=== PATIENT | female | born 1935 | race Caucasian/White ===

== ENCOUNTER → 2017-01-29 | Outpatient (REF) | payer MEDICARE, OTHER | LOC: M LAB REF 18:36 | PROVIDERS: ATTEND Physician Assistant | DX: R30.0 Dysuria (principal) ==

== ENCOUNTER 2018-05-18 12:44 | Day surgery (SDC) | payer MEDICARE, OTHER ==
[~2018-05-18] VITALS: Ht 157.5 cm; Wt 75.7 kg
[~2018-05-18 12:44] MED LIST: ASPI1TAB PO; MULT1TAB10 PO; NS 1,000 ML IV ONE; OCUVTAB PO; OSTETAB2 PO; PRAV20TA2 PO; RANI150T PO; TRAZ-160 PO; VITA100067 PO
[2018-05-18] MEDS ORDERED: PROPOFOL 200 MG/20 ML VIAL As Ordered ONE (12:47)
[2018-05-18] MEDS ORDERED: LIDOCAINE 2% INJ 100 MG/5 ML SDV (FOR ANES.) As Ordered ONE (12:47)
--- NOTE | 2018-05-18 13:53 | ROOR ---
Patient Name: Jessica Aleman Procedure Date: 05/18/2018 1:31 PM Date of : 1935 Age: 83 Room: [facility] Gender: Female Note Status: Finalized Procedure: Upper GI endoscopy Indications: Heartburn, Regurgitation Providers: Erwin LEMONS MD Referring MD: eVnita REAVES MD Requesting Provider: Medicines: Monitored Anesthesia Care Complications: No immediate complications. Procedure: Pre-Anesthesia Assessment: - The heart rate, respiratory rate, oxygen saturations, blood pressure, adequacy of pulmonary ventilation, and response to care were monitored throughout the procedure. The Endoscope was introduced through the mouth, and advanced to the second part of duodenum. The upper GI endoscopy was accomplished without difficulty. The patient tolerated the procedure well. Findings: Edna-colored mucosa was present. No other visible abnormalities were present. Biopsies were taken with a cold forceps for histology. The examined esophagus was normal. A large hiatal hernia was present. Scattered mild inflammation characterized by erythema at the waist of the hernia was found in the stomach. Biopsies were taken with a cold forceps for histology. The examined duodenum was normal. Impression: - Edna-colored mucosa/ectopic mucosa in proximal esophagus (large inlet patch). Biopsied. - Otherwise Normal esophagus. - Large hiatal hernia with a few small shallow linear camerons erosions at the waist of the hernia. Biopsied. - Otherwise normal stomach. - Normal examined duodenum. Recommendation: - Continue present medications. - Finding of camerons erosions is minimal at present, however if pt has iron deficit, then would advance meds back to Omeprazole. Erwin Lemons MD Erwin LEMONS MD 05/18/2018 1:53:32 PM This report has been signed electronically. Number of Addenda: 0 Note Initiated On: 05/18/2018 1:31 PM Estimated Blood Loss: Estimated blood loss: none.
[2018-05-18 14:24] VITALS: BP 169/75
== END 2018-05-18 14:26 | disposition home or self-care (01) ==
LOC: M OPP 12:44
PROVIDERS: ATTEND Internal Medicine Gastroenterology
DX: R12 Heartburn (principal); R11.10 Vomiting, unspecified; K44.9 Diaphragmatic hernia without obstruction or gangrene; I10 Essential (primary) hypertension; Z79.82 Long term (current) use of aspirin; Z79.899 Other long term (current) drug therapy; Z80.0 Family history of malignant neoplasm of digestive organs; Z82.49 Family history of ischemic heart disease and other diseases of the circulatory system

== ENCOUNTER → 2018-06-26 | Outpatient (REF) | payer MEDICARE, OTHER ==
[~2018-06-26] MED LIST changes: -NS 1,000 ML IV ONE
== END ==
LOC: M LAB REF 16:49
PROVIDERS: ATTEND Internal Medicine
DX: N39.0 Urinary tract infection, site not specified (principal)

== ENCOUNTER → 2019-11-27 | Outpatient (REF) | payer MEDICARE, OTHER ==
[~2019-11-27] MED LIST changes: -ASPI1TAB PO; +ASPI81TA26 PO; +DILT120C89 PO; +OMEP-221 PO; -TRAZ-160 PO; +TRAZ-252 PO
== END ==
LOC: M LAB REF 15:12
PROVIDERS: ATTEND Internal Medicine
DX: R20.2 Paresthesia of skin (principal)

== ENCOUNTER → 2020-02-16 | Outpatient (CLI) | payer MEDICARE, OTHER | LOC: M LABSMTC 11:20 | PROVIDERS: ATTEND Orthopaedic Surgery | DX: Z01.812 Encounter for preprocedural laboratory examination (principal); Z20.828 Contact with and (suspected) exposure to other viral communicable diseases ==

== ENCOUNTER → 2020-02-21 | Outpatient (REF) | payer MEDICARE, OTHER ==
[~2020-02-21] MED LIST changes: -DILT120C89 PO; -OMEP-221 PO
== END ==
LOC: M LAB REF 17:18
PROVIDERS: ATTEND Orthopaedic Surgery
DX: D36.12 Benign neoplasm of peripheral nerves and autonomic nervous system, upper limb, including shoulder (principal)

== ENCOUNTER 2020-03-01 14:24 | Emergency (ER) | payer MEDICARE, OTHER ==
[~2020-03-01] VITALS: Ht 157.5 cm; Wt 72.7 kg
[2020-03-01] MEDS: NITROGLYCERIN 0.4 MG SUBL TABLET SL PRN ×2 (14:59→15:14)
[2020-03-01] MEDS ORDERED: TENECTEPLASE 50 MG KIT (TNKase) (J3101 PER 1MG) As Ordered ONE (15:00)
[2020-03-01] MEDS ORDERED: ASPIRIN 81 MG CHEW TABLET PO ONE (15:00)
[2020-03-01] MEDS ORDERED: HEPARIN 25,000 UNITS/250 ML D5W BAG (100 UNITS/ML) (J1644 PER 1000UNITS) As Ordered ONE (15:04)
[2020-03-01 15:05] LABS: BASO # 0.1 10^3/uL (0.0-0.2); BASO % 0.5 % (0.0-1.0); EOS # 0.1 10^3/uL (0.0-0.5); HEMATOCRIT 42.2 % (36.0-47.0); HEMOGLOBIN 14.2 g/dl (12.0-15.5); LYMPH % 32.8 % (24.0-44.0); MEAN CORPUSCULAR HEMOGLOBIN 31.4 pg (27.0-33.0); MEAN CORPUSCULAR HGB CONC 33.6 g/dl (32.0-36.5); MEAN CORPUSCULAR VOLUME 93.4 fl (80.0-96.0); MONO # 0.7 10^3/uL (0.0-0.8); MONO % 7.6 % (0.0-5.0); NEUTROPHILS # 5.3 10^3/uL (1.5-8.5); NEUTROPHILS % 57.7 % (36.0-66.0); PLATELET COUNT, AUTOMATED 260 10^3/uL (150-450); RED BLOOD COUNT 4.52 10^6/uL (4.00-5.40); WHITE BLOOD COUNT 9.2 10^3/uL (4.0-10.0)
[2020-03-01] MEDS ORDERED: CLOPIDOGREL 300 MG TAB (PLAVIX) PO ONE (15:15)
[2020-03-01] MEDS ORDERED: HEPARIN SOD (PORCINE) 5000UNITS/ML 1ML VIAL/SYRINGE IV ONE (15:15)
[2020-03-01] MEDS ORDERED: HEPARIN DRIP 25,000 UNITS in IV 1 EA IV SCH (15:15)
[2020-03-01 15:16] LABS: INR 1.07; PROTHROMBIN TIME 14.1 SECONDS (12.5-14.3)
[2020-03-01 15:17] LABS: PARTIAL THROMBOPLASTIN TIME 26.6 SECONDS (24.2-38.5)
[2020-03-01 15:21] LABS: D-DIMER QUANT 1255.6 ng/ml (<500)
[2020-03-01] MEDS ORDERED: OMEP-221 PO (15:24)
[2020-03-01] MEDS ORDERED: DILT120C89 PO (15:24)
--- NOTE | 2020-03-01 15:26 | REP ---
INDICATION: CHEST PAIN. COMPARISON: None. TECHNIQUE: AP portable upright FINDINGS: The lung watson are well inflated. Some basilar fibrotic change and scattered interstitial changes throughout the lungs. Some patchy increased density the right medial base and some perihilar pulmonary venous hypertension without mika edema. No definite effusion, lateral pleural thickening or apical scarring. There is no cardiomegaly. Aorta is calcified at the arch but without aneurysm. Airway intact. No widening of the mediastinum. Bones with some degenerative changes and demineralization. No free air. IMPRESSION: Underlying fibrosis and COPD. Patchy right medial base infrahilar atelectasis or early infiltrate. No gross effusion. No cardiomegaly but some pulmonary venous hypertension seen without definite edema. <Electronically signed by Jordan Delgado > 03/01/20 [id number]
[2020-03-01] MEDS ORDERED: NITROGLYCERIN 2% OINT 1 GM *U/D* PKT TOP ONE ×2 (15:30→16:15)
[2020-03-01 15:39] LABS: ALBUMIN 4.1 GM/DL (3.2-5.2); ALT/SGPT 25 U/L (12-78); BILIRUBIN,DIRECT < 0.1 MG/DL (0.0-0.2); BILIRUBIN,TOTAL 0.6 MG/DL (0.2-1.0); LIPASE 129 U/L (73-393); NT-PRO BNP 127 PG/ML (<450); TOTAL PROTEIN 7.1 GM/DL (6.4-8.2)
[2020-03-01 16:11] VITALS: BP 193/103
[2020-03-01] MEDS ORDERED: MORPHINE 2 MG/ML 1ML VIAL (J2270) IV ONE (16:15)
[2020-03-01] MEDS ORDERED: METOPROLOL TART 25 MG TABLET PO ONE (16:15)
[2020-03-01 16:55] VITALS: BP 175/110
--- NOTE | 2020-03-01 17:08 | ECGEPIP ---
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
--- NOTE | 2020-03-01 17:08 | ECGEPIP ---
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
== END 2020-03-01 16:59 | disposition short-term general hospital (02) ==
LOC: M ED 14:24
DX: I20.0 Unstable angina (principal); R06.02 Shortness of breath; I10 Essential (primary) hypertension; E78.5 Hyperlipidemia, unspecified; K21.9 Gastro-esophageal reflux disease without esophagitis; Z79.899 Other long term (current) drug therapy
CPT/HCPCS: 71045; 80047; 80076; 83690; 83880; 84443; 84484; 85025; 85379; 85610; 85730; 93005; 93041; 94760; 96365; 96366; 96375; 99291; J1644; J2270; U0002

== ENCOUNTER → 2020-03-13 | Outpatient (REF) | payer MEDICARE, OTHER ==
[~2020-03-13] MED LIST changes: +ASPI1CHW2 PO; +ATOR80TA59 PO; +BRIL90TA PO; +DIGO0.123 PO; +DILT120C89 PO; +ELIQ5TAB PO; +FURO40TA2 PO; +LISI-542 PO; +METO100T5 PO; +NITR0.4S14 SL; +OMEP-221 PO; +POTA20TA6 PO; +PRES10CA2 PO
== END ==
LOC: M LAB REF 12:19
PROVIDERS: ATTEND Internal Medicine
DX: I48.20 Chronic atrial fibrillation, unspecified (principal)

== ENCOUNTER 2020-03-20 17:01 | Emergency (ER) | payer MEDICARE, OTHER ==
[~2020-03-20] VITALS: Ht 157.5 cm; Wt 70.5 kg
[~2020-03-20 17:01] MED LIST changes: -ASPI1CHW2 PO; -ATOR80TA59 PO; -BRIL90TA PO; -DIGO0.123 PO; -ELIQ5TAB PO; -FURO40TA2 PO; -LISI-542 PO; -METO100T5 PO; -NITR0.4S14 SL; -POTA20TA6 PO; -PRES10CA2 PO
[2020-03-20 17:24] VITALS: BP 127/62
[2020-03-20 17:26] LABS: BASO % 0.4 % (0.0-1.0); EOS # 0.1 10^3/uL (0.0-0.5); EOS % 1.3 % (0.0-3.0); HEMATOCRIT 34.4 % (36.0-47.0); HEMOGLOBIN 11.8 g/dl (12.0-15.5); LYMPH # 1.3 10^3/uL (1.5-5.0); LYMPH % 18.7 % (24.0-44.0); MEAN CORPUSCULAR HEMOGLOBIN 31.3 pg (27.0-33.0); MEAN CORPUSCULAR HGB CONC 34.3 g/dl (32.0-36.5); MEAN CORPUSCULAR VOLUME 91.2 fl (80.0-96.0); MONO # 0.9 10^3/uL (0.0-0.8); MONO % 13.2 % (0.0-5.0); NEUTROPHILS # 4.5 10^3/uL (1.5-8.5); NEUTROPHILS % 66.3 % (36.0-66.0); PLATELET COUNT, AUTOMATED 176 10^3/uL (150-450); RED BLOOD COUNT 3.77 10^6/uL (4.00-5.40); WHITE BLOOD COUNT 6.8 10^3/uL (4.0-10.0)
[2020-03-20] MEDS ORDERED: METOPROLOL TARTRATE 100 MG TAB PO ONE (17:30)
--- NOTE | 2020-03-20 17:46 | REP ---
INDICATION: CHEST PAIN COMPARISON: 03/01/2020 TECHNIQUE: Portable AP view of the chest FINDINGS: The mediastinum and cardiac silhouette are stable and within normal limits for portable technique. The lung watson are clear without acute consolidation, effusion, or pneumothorax. Skeletal structures are intact. IMPRESSION: No acute cardiopulmonary process appreciated. <Electronically signed by Arjun Lewis > 03/20/20 [id number]
[2020-03-20 18:02] LABS: ALBUMIN 3.4 GM/DL (3.2-5.2); BILIRUBIN,DIRECT 0.2 MG/DL (0.0-0.2); BILIRUBIN,TOTAL 0.6 MG/DL (0.2-1.0); CREATININE FOR GFR 1.29 MG/DL (0.55-1.30); GLOMERULAR FILTRATION RATE 42.1 (>32); POTASSIUM SERUM 3.5 MEQ/L (3.5-5.1); THYROID STIMULATING HORMONE 0.991 uIU/ML (0.358-3.740); TOTAL PROTEIN 5.8 GM/DL (6.4-8.2)
[2020-03-20] MEDS ORDERED: DIGO0.123 PO (18:07)
[2020-03-20] MEDS ORDERED: ASPI1CHW2 PO (18:07)
[2020-03-20] MEDS ORDERED: BRIL90TA PO (18:07)
[2020-03-20] MEDS ORDERED: ELIQ5TAB PO (18:07)
[2020-03-20] MEDS ORDERED: METO100T5 PO (18:07)
[2020-03-20] MEDS ORDERED: FURO40TA2 PO (18:07)
[2020-03-20] MEDS ORDERED: PRES10CA2 PO (18:07)
[2020-03-20] MEDS ORDERED: LISI-542 PO (18:07)
[2020-03-20] MEDS ORDERED: NITR0.4S14 SL (18:07)
[2020-03-20] MEDS ORDERED: POTA20TA6 PO (18:07)
[2020-03-20] MEDS ORDERED: ATOR80TA59 PO (18:07)
--- NOTE | 2020-03-20 18:14 | ECGEPIP ---
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
[2020-03-20 18:24] LABS: CK-MB VALUE MASS 2.4 NG/ML (<3.6); MB/CK RELATIVE INDEX 2.58 (< OR =4); TROPONIN I 0.06 NG/ML (< 0.10)
[2020-03-20 20:58] LABS: CK-MB VALUE MASS 3.2 NG/ML (<3.6); MB/CK RELATIVE INDEX 3.56 (< OR =4); TROPONIN I 0.09 NG/ML (< 0.10)
[2020-03-20 23:54] LABS: CK-MB VALUE MASS 2.8 NG/ML (<3.6); MB/CK RELATIVE INDEX 2.98 (< OR =4); TROPONIN I 0.08 NG/ML (< 0.10)
[2020-03-21 00:30] VITALS: BP 114/65
--- NOTE | 2020-03-21 06:36 | ECGEPIP ---
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
== END 2020-03-21 00:41 | disposition home or self-care (01) ==
LOC: EDBD 17:01 → M ED 17:01
DX: R07.89 Other chest pain (principal); I95.2 Hypotension due to drugs; I48.91 Unspecified atrial fibrillation; I10 Essential (primary) hypertension; E78.5 Hyperlipidemia, unspecified; K21.9 Gastro-esophageal reflux disease without esophagitis; Z79.01 Long term (current) use of anticoagulants; Z79.02 Long term (current) use of antithrombotics/antiplatelets; Z79.899 Other long term (current) drug therapy; Z79.82 Long term (current) use of aspirin; Z95.5 Presence of coronary angioplasty implant and graft; Z82.49 Family history of ischemic heart disease and other diseases of the circulatory system

== ENCOUNTER → 2020-04-07 | Outpatient (REF) | payer MEDICARE, OTHER ==
[~2020-04-07] MED LIST changes: +ASPI1CHW2 PO; +ATOR80TA59 PO; +BRIL90TA PO; +DIGO0.123 PO; +ELIQ5TAB PO; +FURO40TA2 PO; +LISI-542 PO; +METO100T5 PO; +NITR0.4S14 SL; +POTA20TA6 PO; +PRES10CA2 PO
[2020-04-07 16:58] LABS: BASO % 0.6 % (0.0-1.0); EOS # 0.1 10^3/uL (0.0-0.5); EOS % 2.4 % (0.0-3.0); HEMATOCRIT 36.4 % (36.0-47.0); HEMOGLOBIN 12.1 g/dl (12.0-15.5); LYMPH # 1.7 10^3/uL (1.5-5.0); LYMPH % 33.9 % (24.0-44.0); MEAN CORPUSCULAR HEMOGLOBIN 32.4 pg (27.0-33.0); MEAN CORPUSCULAR HGB CONC 33.2 g/dl (32.0-36.5); MEAN CORPUSCULAR VOLUME 97.3 fl (80.0-96.0); MONO # 0.4 10^3/uL (0.0-0.8); MONO % 8.4 % (0.0-5.0); NEUTROPHILS # 2.7 10^3/uL (1.5-8.5); NEUTROPHILS % 54.3 % (36.0-66.0); PLATELET COUNT, AUTOMATED 206 10^3/uL (150-450); RED BLOOD COUNT 3.74 10^6/uL (4.00-5.40)
[2020-04-07 17:17] LABS: CALCIUM LEVEL 9.8 MG/DL (8.8-10.2); CREATININE FOR GFR 0.98 MG/DL (0.55-1.30); GLOMERULAR FILTRATION RATE 57.7 (>32); MAGNESIUM LEVEL 2.1 MG/DL (1.8-2.4); POTASSIUM SERUM 4.5 MEQ/L (3.5-5.1)
[2020-04-08 14:40] LABS: DIGOXIN LEVEL 0.5 NG/ML (0.5-2.0)
== END ==
LOC: M LAB REF 16:26
PROVIDERS: ATTEND Internal Medicine
DX: I50.20 Unspecified systolic (congestive) heart failure (principal)

== ENCOUNTER → 2020-07-22 | Outpatient (REF) | payer MEDICARE, OTHER ==
[~2020-07-22] MED LIST changes: -LISI-542 PO; +LISI-898 PO
== END ==
LOC: M LAB REF 16:20
PROVIDERS: ATTEND Internal Medicine
DX: I48.20 Chronic atrial fibrillation, unspecified (principal)

== ENCOUNTER → 2021-01-27 | Outpatient (REF) | payer MEDICARE, OTHER | LOC: M LAB REF 16:46 | PROVIDERS: ATTEND Internal Medicine | DX: I48.20 Chronic atrial fibrillation, unspecified (principal) ==

== ENCOUNTER → 2022-03-30 | Outpatient (CLI) | payer MEDICARE, OTHER ==
[~2022-03-30] MED LIST changes: -LISI-898 PO; +LISI5TAB11 PO; -OMEP-221 PO; +OMEP40CA5 PO; +POTA-151 PO; -POTA20TA6 PO
== END ==
LOC: M WUC 14:49
PROVIDERS: ATTEND Internal Medicine
DX: M54.2 Cervicalgia (principal)

== ENCOUNTER → 2022-04-02 | Outpatient (CLI) | payer MEDICARE, OTHER | LOC: M PLAIMG 09:58 | PROVIDERS: ATTEND Internal Medicine | DX: R51.9 Headache, unspecified (principal) ==

== ENCOUNTER → 2022-11-02 | Outpatient (REF) | payer MEDICARE, OTHER | LOC: M LAB REF 17:19 | PROVIDERS: ATTEND Internal Medicine | DX: I48.20 Chronic atrial fibrillation, unspecified (principal) ==

== ENCOUNTER → 2023-02-01 | Outpatient (REF) | payer MEDICARE, OTHER | LOC: M LAB REF 17:53 | PROVIDERS: ATTEND Internal Medicine | DX: I48.20 Chronic atrial fibrillation, unspecified (principal) ==

== ENCOUNTER → 2023-06-13 | Outpatient (REF) | payer MEDICARE, OTHER | LOC: M LAB REF 16:24 | PROVIDERS: ATTEND Internal Medicine | DX: I48.20 Chronic atrial fibrillation, unspecified (principal) ==

== ENCOUNTER → 2024-02-14 | Outpatient (REF) | payer MEDICARE, OTHER | LOC: M LAB REF 17:32 | PROVIDERS: ATTEND Internal Medicine | DX: I48.0 Paroxysmal atrial fibrillation (principal) ==

== ENCOUNTER → 2024-05-04 | Outpatient (REF) | payer MEDICARE, OTHER | LOC: M LAB REF 16:03 | PROVIDERS: ATTEND Physician Assistant Medical | DX: R05.9 Cough, unspecified (principal) ==

== ENCOUNTER → 2024-05-08 | Outpatient (CLI) | payer MEDICARE, OTHER ==
[~2024-05-08] MED LIST changes: +VITA100093 PO
== END ==
LOC: M WUC 14:54
PROVIDERS: ATTEND Physician Assistant Medical
DX: R07.82 Intercostal pain (principal)

== ENCOUNTER → 2024-05-09 | Outpatient (REF) | payer MEDICARE, OTHER | LOC: M LAB REF 12:21 | PROVIDERS: ATTEND Internal Medicine | DX: R06.02 Shortness of breath (principal); N18.30 Chronic kidney disease, stage 3 unspecified ==

== ENCOUNTER 2024-05-11 11:18 | Inpatient (IN) | payer MEDICARE, OTHER ==
[2024-05-11] VITALS (21 sets, daily range): BP systolic 102–198; BP diastolic 54–77; TEMP 98.1–99.1; O2SAT 95–100
[~2024-05-11] VITALS: Ht 157.5 cm; Wt 64.9 kg
[~2024-05-11 11:18] MED LIST changes: -VITA100093 PO
[2024-05-11 12:58] LABS: BASO % 0.3 % (0.0-1.0); EOS # 0.1 10^3/uL (0.0-0.5); EOS % 0.5 % (0.0-3.0); HEMATOCRIT 36.4 % (36.0-47.0); HEMOGLOBIN 12.2 g/dl (12.0-15.5); LYMPH # 1.1 10^3/uL (1.5-5.0); LYMPH % 9.2 % (24.0-44.0); MEAN CORPUSCULAR HEMOGLOBIN 32.4 pg (27.0-33.0); MEAN CORPUSCULAR HGB CONC 33.5 g/dl (32.0-36.5); MEAN CORPUSCULAR VOLUME 96.6 fl (80.0-96.0); MONO % 8.4 % (2.0-8.0); NEUTROPHILS # 9.8 10^3/uL (1.5-8.5); PLATELET COUNT, AUTOMATED 513 10^3/uL (150-450); RED BLOOD COUNT 3.77 10^6/uL (4.00-5.40); WHITE BLOOD COUNT 12.1 10^3/uL (4.0-10.0)
[2024-05-11 13:21] LABS: LIPASE 59 U/L (12-53)
[2024-05-11 13:23] LABS: ALKALINE PHOSPHATASE 128 U/L (35-104); ALT/SGPT 38 U/L (7.0-40); AST/SGOT 47 U/L (<34); BILIRUBIN,DIRECT 0.3 MG/DL (<0.4); BILIRUBIN,TOTAL 0.6 MG/DL (0.3-1.2); BLOOD UREA NITROGEN 26 MG/DL (9-23); CALCIUM LEVEL 10.2 MG/DL (8.3-10.6); CARBON DIOXIDE LEVEL 26 MMOL/L (20-31); CHLORIDE LEVEL 108 MMOL/L (98-107); CREATININE FOR GFR 0.85 MG/DL (0.55-1.30); GLOMERULAR FILTRATION RATE > 60.0 (>32); GLUCOSE, FASTING 109 MG/DL (74-106); POTASSIUM SERUM 4.9 MMOL/L (3.5-5.1); SODIUM LEVEL 142 MMOL/L (136-145); TOTAL PROTEIN 5.6 G/DL (5.7-8.2)
[2024-05-11 15:32] LABS: KETONE, URINE AUTO RFX NEGATIVE (NEGATIVE); MUCUS, URINE RFX SMALL (NEGATIVE); NITRITE, URINE AUTO RFX NEGATIVE (NEGATIVE); RBC, URINE AUTO RFX 1 /HPF (0-3); SQUAM EPITHELIAL CELL UR AURFX 1 /HPF (0-6); WBC, URINE AUTO RFX 2 /HPF (0-3)
[2024-05-11 15:33] LABS: LEUKOCYTE ESTERASE UR AUTO RFX TRACE (NEGATIVE)
[2024-05-11] MEDS: IPRATROPIUM 0.5MG/ALBUTEROL 2.5MG INH SOL UD 3ML (DUONEB) NEB ONE (16:05)
[2024-05-11] MEDS ORDERED: D5W/0.9% SODIUM CHLORIDE 1,000 ML IV SCH (17:10)
[2024-05-11] MEDS ORDERED: LEVALBUTEROL 1.25MG 0.5ML CONCENTRATE NEB NEB PRN (17:10)
[2024-05-11] MEDS ORDERED: BISACODYL 10MG SUPP PR PRN (17:10)
[2024-05-11] MEDS ORDERED: ONDANSETRON 4MG 2ML VIAL IV PRN (17:10)
[2024-05-11] MEDS ORDERED: MAALOX 30 ML SUSP *UDC PO PRN (17:20)
[2024-05-11] MEDS ORDERED: guaiFENesin DM *SUGAR FREE* 5ML**DIABETIC TUSSIN DM PO PRN (17:30)
[2024-05-11 17:37] LABS: LDH LACTATE DEHYDROGENASE 289 U/L (120-246)
[2024-05-11 17:43] LABS: ABG BASE EXCESS 0.9 (-2.0-2.0); ABG HCO3 24.1 MMOL/L (22.0-26.0); ABG O2 SATURATION 93.9 % (95.0-99.0); ABG PARTIAL PRESSURE CO2 33.9 mmHg (35.0-45.0); ABG PARTIAL PRESSURE O2 66.5 mmHg (75.0-100.0); ABG STANDARD HCO3 25.2 MMOL/L. (22.0-26.0); ABG TOTAL CO2 25.2 MMOL/L (23.0-31.0)
[2024-05-11] MEDS: MIDAZOLAM INJ 2MG/2ML VIAL IV STA (17:57)
[2024-05-11] MEDS: LIDOCAINE 1% MDV 20ML VIAL SC STA (17:57)
[2024-05-11] MEDS: flumazeniL 0.5MG/5ML VIAL IV STA (17:57)
[2024-05-11] MEDS ORDERED: VITA100093 PO (18:14)
[2024-05-11] MEDS ORDERED: HOME MED LIST COMPLETE! XX SCH (18:15)
[2024-05-11 19:59] LABS: IONIZED CALCIUM 5.1 MG/DL (4.5-5.3)
[2024-05-11] MEDS: LEVALBUTEROL 1.25MG 0.5ML CONCENTRATE NEB NEB SCH (20:10)
[2024-05-11] MEDS: KETOROLAC 30 MG/ML 1ML VIAL IV SCH (20:23)
[2024-05-11] MEDS: PIPERACILLIN/TAZOBACTAM SOD 4.5 GM in DEXTROSE 5% (D5W) ADV/MINI-BAG 50 ML IV SCH (20:24)
[2024-05-11 20:34] LABS: APPEARANCE, BODY FLUID HAZY (CLEAR); PLEURAL FL COLOR ORANGE (COLORLESS); SOURCE, BODY FLUID PLEURAL
[2024-05-11] MEDS: DOCUSATE SODIUM 100MG CAPSULE PO SCH (20:54)
[2024-05-11 21:01] LABS: PH BODY FLUID 7.687 UNITS (NOT ESTABLISHED); SOURCE, BODY FLUID pH PLEURAL
[2024-05-11 21:05] LABS: SOURCE, BODY FLUID ALBUMIN PLEURAL
[2024-05-11 21:23] LABS: SOURCE, BODY FLUID TOT PROTEIN PLEURAL; TOTAL PROTEIN, BODY FLUID 3.2 G/DL (NOT ESTABLISHED)
[2024-05-11] MEDS: DOXYCYCLINE HYCLATE 100MG TABLET PO SCH (21:47)
[2024-05-12] VITALS (12 sets, daily range): BP systolic 108–142; BP diastolic 56–76; TEMP 97.1–98.6; O2SAT 92–97
[2024-05-12 04:55] LABS: BASO % 0.5 % (0.0-1.0); EOS # 0.1 10^3/uL (0.0-0.5); EOS % 1.7 % (0.0-3.0); HEMATOCRIT 32.9 % (36.0-47.0); LYMPH # 1.7 10^3/uL (1.5-5.0); LYMPH % 19.9 % (24.0-44.0); MEAN CORPUSCULAR HEMOGLOBIN 32.1 pg (27.0-33.0); MEAN CORPUSCULAR HGB CONC 33.4 g/dl (32.0-36.5); MEAN CORPUSCULAR VOLUME 95.9 fl (80.0-96.0); MONO % 11.7 % (2.0-8.0); NEUTROPHILS # 5.5 10^3/uL (1.5-8.5); NEUTROPHILS % 65.7 % (36.0-66.0); PLATELET COUNT, AUTOMATED 421 10^3/uL (150-450); RED BLOOD COUNT 3.43 10^6/uL (4.00-5.40); WHITE BLOOD COUNT 8.3 10^3/uL (4.0-10.0)
[2024-05-12 05:20] LABS: CALCIUM LEVEL 10.2 MG/DL (8.3-10.6); GLOMERULAR FILTRATION RATE 55.8 (>32); POTASSIUM SERUM 4.8 MMOL/L (3.5-5.1)
[2024-05-12] MEDS: MOM 30ML SUSPENSION UDC PO SCH (08:18)
[2024-05-12] MEDS: METOPROLOL TARTRATE 100MG TAB PO SCH (08:18)
[2024-05-12] MEDS: ACETAMINOPHEN 325 MG TAB PO PRN (08:18)
[2024-05-12] MEDS: PANTOPRAZOLE 40MG TAB (PROTONIX) PO SCH (08:19)
[2024-05-12] MEDS: DIGOXIN 0.125 MG TAB PO SCH (08:19)
[2024-05-12] MEDS: APIXABAN 5 MG TAB (ELIQUIS) PO SCH (08:19)
[2024-05-12] MEDS ORDERED: PANTOPRAZOLE 40MG VIAL IV SCH (09:00)
[2024-05-12 11:12] LABS: SOURCE, BODY FLUID GLUCOSE PLEURAL; SOURCE, BODY FLUID TRIG PLEURAL; TRIGLYCERIDE, BODY FLUID 28 MG/DL (NOT ESTABLISHED)
[2024-05-12 11:13] LABS: AMYLASE, BODY FLUID 38 U/L (NOT ESTABLISHED); LDH, BODY FLUID 320 U/L (NOT ESTABLISHED); SOURCE, BODY FLUID AMYLASE PLEURAL; SOURCE, BODY FLUID LDH PLEURAL
[2024-05-12 11:14] LABS: CHOLESTEROL, BODY FLUID 48 MG/DL (NOT ESTABLISHED); SOURCE, BODY FLUID CHOL PLEURAL
[2024-05-12] MEDS: traZODone 50 MG TAB PO SCH (20:26)
[2024-05-12] MEDS: ATORVASTATIN 20 MG TAB PO SCH (20:26)
[2024-05-12] MEDS: PERCOCET 5MG/325MG TAB PO PRN (21:21)
[2024-05-13] VITALS (21 sets, daily range): BP systolic 110–128; BP diastolic 59–68; TEMP 97.3–98.5; O2SAT 91–100
[2024-05-13] MEDS ORDERED: ISOVUE-370 76% 100ML VIAL As Ordered ONE (01:06)
[2024-05-13 05:49] LABS: BASO # 0.1 10^3/uL (0.0-0.2); BASO % 0.5 % (0.0-1.0); EOS # 0.3 10^3/uL (0.0-0.5); HEMATOCRIT 32.7 % (36.0-47.0); HEMOGLOBIN 10.6 g/dl (12.0-15.5); LYMPH # 1.6 10^3/uL (1.5-5.0); LYMPH % 16.8 % (24.0-44.0); MEAN CORPUSCULAR HEMOGLOBIN 31.6 pg (27.0-33.0); MEAN CORPUSCULAR HGB CONC 32.4 g/dl (32.0-36.5); MEAN CORPUSCULAR VOLUME 97.6 fl (80.0-96.0); MONO % 10.8 % (2.0-8.0); NEUTROPHILS # 6.4 10^3/uL (1.5-8.5); NEUTROPHILS % 68.5 % (36.0-66.0); PLATELET COUNT, AUTOMATED 456 10^3/uL (150-450); RED BLOOD COUNT 3.35 10^6/uL (4.00-5.40); WHITE BLOOD COUNT 9.3 10^3/uL (4.0-10.0)
[2024-05-13 06:04] LABS: CALCIUM LEVEL 9.5 MG/DL (8.3-10.6); CREATININE FOR GFR 1.07 MG/DL (0.55-1.30); GLOMERULAR FILTRATION RATE 51.6 (>32); POTASSIUM SERUM 5.5 MMOL/L (3.5-5.1)
[2024-05-13] MEDS: DEXTROSE 50% 50ML SYRINGE IV STA (07:50)
[2024-05-13] MEDS: HumuLIN R (REGULAR) INSULIN (NovoLIN R) **100U/ML** PER UNIT IV STA (07:51)
[2024-05-13] MEDS: ALBUTEROL SULFATE 2.5MG/0.5ML INH NEB SOLN NEB ONE (08:27)
[2024-05-13] MEDS: PERCOCET 5MG/325MG TAB PO PRN (08:46)
[2024-05-13 11:03] LABS: CALCIUM LEVEL 9.9 MG/DL (8.3-10.6); CREATININE FOR GFR 0.98 MG/DL (0.55-1.30); GLOMERULAR FILTRATION RATE 57.2 (>32); POTASSIUM SERUM 4.9 MMOL/L (3.5-5.1)
[2024-05-14] VITALS (22 sets, daily range): BP systolic 101–136; BP diastolic 53–72; TEMP 97.2–98.9; O2SAT 88–100
[2024-05-14 06:09] LABS: BASO # 0.1 10^3/uL (0.0-0.2); BASO % 0.6 % (0.0-1.0); EOS # 0.3 10^3/uL (0.0-0.5); EOS % 2.4 % (0.0-3.0); HEMATOCRIT 36.3 % (36.0-47.0); HEMOGLOBIN 11.7 g/dl (12.0-15.5); LYMPH # 1.2 10^3/uL (1.5-5.0); LYMPH % 10.7 % (24.0-44.0); MEAN CORPUSCULAR HEMOGLOBIN 31.6 pg (27.0-33.0); MEAN CORPUSCULAR HGB CONC 32.2 g/dl (32.0-36.5); MEAN CORPUSCULAR VOLUME 98.1 fl (80.0-96.0); MONO # 0.9 10^3/uL (0.0-0.8); NEUTROPHILS # 8.9 10^3/uL (1.5-8.5); NEUTROPHILS % 77.8 % (36.0-66.0); PLATELET COUNT, AUTOMATED 482 10^3/uL (150-450); WHITE BLOOD COUNT 11.5 10^3/uL (4.0-10.0)
[2024-05-14 06:36] LABS: BLOOD UREA NITROGEN 20 MG/DL (9-23); CALCIUM LEVEL 9.9 MG/DL (8.3-10.6); CARBON DIOXIDE LEVEL 25 MMOL/L (20-31); CHLORIDE LEVEL 108 MMOL/L (98-107); CREATININE FOR GFR 0.91 MG/DL (0.55-1.30); GLOMERULAR FILTRATION RATE > 60.0 (>32); GLUCOSE, FASTING 88 MG/DL (74-106); POTASSIUM SERUM 5.5 MMOL/L (3.5-5.1); SODIUM LEVEL 140 MMOL/L (136-145)
[2024-05-14] MEDS: HumuLIN R (REGULAR) INSULIN (NovoLIN R) **100U/ML** PER UNIT IV STA (07:03)
[2024-05-14] MEDS: FUROSEMIDE 40MG/4ML VIAL IV ONE (08:22)
[2024-05-14] MEDS: ALBUTEROL SULFATE 2.5MG/0.5ML INH NEB SOLN NEB ONE (08:36)
[2024-05-14] MEDS: SOD POLYSTYRENE SULFONATE SUSP 15GM 60ML UD PO ONE (08:36)
[2024-05-14] MEDS: BISACODYL 10MG SUPP PR SCH (09:00)
[2024-05-14] MEDS: SENOKOT S TAB PO SCH (09:16)
[2024-05-14 12:39] LABS: CALCIUM LEVEL 10.3 MG/DL (8.3-10.6); CREATININE FOR GFR 0.98 MG/DL (0.55-1.30); GLOMERULAR FILTRATION RATE 57.2 (>32); POTASSIUM SERUM 4.5 MMOL/L (3.5-5.1)
[2024-05-15] VITALS (28 sets, daily range): BP systolic 115–122; BP diastolic 56–69; TEMP 97.2–98.2; O2SAT 89–100
[2024-05-15 06:05] LABS: BASO # 0.1 10^3/uL (0.0-0.2); BASO % 0.8 % (0.0-1.0); EOS # 0.2 10^3/uL (0.0-0.5); HEMATOCRIT 34.2 % (36.0-47.0); HEMOGLOBIN 11.1 g/dl (12.0-15.5); LYMPH # 1.1 10^3/uL (1.5-5.0); LYMPH % 11.6 % (24.0-44.0); MEAN CORPUSCULAR HEMOGLOBIN 31.5 pg (27.0-33.0); MEAN CORPUSCULAR HGB CONC 32.5 g/dl (32.0-36.5); MEAN CORPUSCULAR VOLUME 97.2 fl (80.0-96.0); MONO # 1.2 10^3/uL (0.0-0.8); MONO % 12.7 % (2.0-8.0); NEUTROPHILS # 6.9 10^3/uL (1.5-8.5); NEUTROPHILS % 72.6 % (36.0-66.0); PLATELET COUNT, AUTOMATED 430 10^3/uL (150-450); RED BLOOD COUNT 3.52 10^6/uL (4.00-5.40); WHITE BLOOD COUNT 9.6 10^3/uL (4.0-10.0)
[2024-05-15 06:18] LABS: CALCIUM LEVEL 9.9 MG/DL (8.3-10.6); CREATININE FOR GFR 1.08 MG/DL (0.55-1.30); GLOMERULAR FILTRATION RATE 51.1 (>32); POTASSIUM SERUM 4.7 MMOL/L (3.5-5.1)
[2024-05-15] MEDS: SOD POLYSTYRENE SULFONATE SUSP 15GM 60ML UD PO ONE (09:01)
[2024-05-15] MEDS: CEFDINIR 300 MG CAP (OMNICEF) PO SCH (20:34)
[2024-05-16 03:31] VITALS: BP 119/68; TEMP 98.5; O2SAT 95
[2024-05-16 06:55] LABS: BASO # 0.1 10^3/uL (0.0-0.2); BASO % 0.8 % (0.0-1.0); EOS # 0.3 10^3/uL (0.0-0.5); HEMATOCRIT 33.5 % (36.0-47.0); HEMOGLOBIN 10.9 g/dl (12.0-15.5); LYMPH # 1.3 10^3/uL (1.5-5.0); LYMPH % 14.5 % (24.0-44.0); MEAN CORPUSCULAR HEMOGLOBIN 31.6 pg (27.0-33.0); MEAN CORPUSCULAR HGB CONC 32.5 g/dl (32.0-36.5); MEAN CORPUSCULAR VOLUME 97.1 fl (80.0-96.0); MONO # 1.2 10^3/uL (0.0-0.8); MONO % 13.6 % (2.0-8.0); NEUTROPHILS # 5.9 10^3/uL (1.5-8.5); NEUTROPHILS % 67.5 % (36.0-66.0); PLATELET COUNT, AUTOMATED 422 10^3/uL (150-450); RED BLOOD COUNT 3.45 10^6/uL (4.00-5.40); WHITE BLOOD COUNT 8.7 10^3/uL (4.0-10.0)
[2024-05-16 07:22] LABS: BLOOD UREA NITROGEN 18 MG/DL (9-23); CALCIUM LEVEL 9.4 MG/DL (8.3-10.6); CARBON DIOXIDE LEVEL 28 MMOL/L (20-31); CHLORIDE LEVEL 110 MMOL/L (98-107); CREATININE FOR GFR 0.86 MG/DL (0.55-1.30); GLOMERULAR FILTRATION RATE > 60.0 (>32); GLUCOSE, FASTING 96 MG/DL (74-106); POTASSIUM SERUM 4.3 MMOL/L (3.5-5.1); SODIUM LEVEL 142 MMOL/L (136-145)
[2024-05-16 08:06] VITALS: BP 132/65; TEMP 97.6; O2SAT 98
[2024-05-16 09:25] VITALS: BP 132/65
[2024-05-16] MEDS ORDERED: CEFD300CAP PO (11:32)
[2024-05-16] MEDS ORDERED: DOXY100T PO (11:32)
== END 2024-05-16 13:31 | disposition home or self-care (01) | DRG 186 ==
LOC: M ED 11:18 → M ED INP 17:10 → M PCU 17:43
PROVIDERS: ADMIT Student in an Organized Health Care Education/Training Program; ATTEND Student in an Organized Health Care Education/Training Program
PROC: 0W9930Z Drainage of Right Pleural Cavity with Drainage Device, Percutaneous Approach (ICD-10-PCS; 2024-05-11)
PROC: B246ZZZ Ultrasonography of Right and Left Heart (ICD-10-PCS; principal; 2024-05-12)
DX: J90 Pleural effusion, not elsewhere classified (principal); J18.9 Pneumonia, unspecified organism; J93.9 Pneumothorax, unspecified; I10 Essential (primary) hypertension; E78.5 Hyperlipidemia, unspecified; I25.10 Atherosclerotic heart disease of native coronary artery without angina pectoris; K21.9 Gastro-esophageal reflux disease without esophagitis; I48.91 Unspecified atrial fibrillation; Z79.01 Long term (current) use of anticoagulants; Z79.82 Long term (current) use of aspirin; Z79.899 Other long term (current) drug therapy; Z95.5 Presence of coronary angioplasty implant and graft; E83.52 Hypercalcemia; E87.5 Hyperkalemia

== ENCOUNTER → 2024-05-29 | Outpatient (CLI) | payer MEDICARE, OTHER ==
[~2024-05-29] MED LIST changes: +CEFD300CAP PO; +DOXY100T PO; +VITA100093 PO
== END ==
LOC: M WUC 10:17
PROVIDERS: ATTEND Internal Medicine
DX: R06.02 Shortness of breath (principal); J91.8 Pleural effusion in other conditions classified elsewhere

== ENCOUNTER → 2024-06-08 | Outpatient (REF) | payer MEDICARE, OTHER | LOC: M LAB REF 12:53 | PROVIDERS: ATTEND Internal Medicine | DX: I25.10 Atherosclerotic heart disease of native coronary artery without angina pectoris (principal); I12.9 Hypertensive chronic kidney disease with stage 1 through stage 4 chronic kidney disease, or unspecified chronic kidney disease ==

== ENCOUNTER → 2024-06-15 | Outpatient (CLI) | payer MEDICARE, OTHER | LOC: M WUC 10:13 | PROVIDERS: ATTEND Internal Medicine | DX: J18.9 Pneumonia, unspecified organism (principal); J90 Pleural effusion, not elsewhere classified ==

== ENCOUNTER → 2024-06-27 | Outpatient (CLI) | payer MEDICARE, OTHER | LOC: M WUC 15:37 | PROVIDERS: ATTEND Internal Medicine | DX: J90 Pleural effusion, not elsewhere classified (principal); R06.02 Shortness of breath; R91.8 Other nonspecific abnormal finding of lung field ==

== ENCOUNTER → 2024-08-08 | Outpatient (REF) | payer MEDICARE, OTHER | LOC: M LAB REF 12:11 | PROVIDERS: ATTEND Physician Assistant Medical | DX: N39.0 Urinary tract infection, site not specified (principal) ==

== ENCOUNTER → 2024-09-12 | Outpatient (CLI) | payer MEDICARE, OTHER | LOC: M WUC 12:11 | PROVIDERS: ATTEND Internal Medicine | DX: J18.9 Pneumonia, unspecified organism (principal) ==

== ENCOUNTER → 2025-01-03 | Outpatient (REF) | payer MEDICARE, OTHER ==
[~2025-01-03] MED LIST changes: -PRAV20TA2 PO; +PRAV20TA78 PO
== END ==
LOC: M LAB REF 12:05
PROVIDERS: ATTEND Internal Medicine
DX: I48.0 Paroxysmal atrial fibrillation (principal)